=== PATIENT | female | born 1955 | race Caucasian/White ===

== ENCOUNTER 2020-09-22 21:43 | Inpatient (IN) | payer MEDICARE ==
[~2020-09-22] VITALS: Ht 149.9 cm; Wt 74.8 kg
[2020-09-22] MEDS ORDERED: ASPIRIN 325 MG TABLET ONE (22:59)
[2020-09-22] MEDS ORDERED: ACETAMINOPHEN 325 MG TAB ONE (22:59)
[2020-09-22] MEDS ORDERED: CEFTRIAXONE 1G VIAL ONE (23:26)
[2020-09-22] MEDS ORDERED: AZITHROMYCIN 500MG+NS 250ML 250 ML IV ONE (23:26)
[2020-09-22] MEDS ORDERED: 0.9%NACL 1000ML 2,000 ML IV ONE (23:27)
[2020-09-22 23:35] LABS: BASOPHILS % (AUTO) 0.2 % (0.0-5.0); EOSINOPHILS % (AUTO) 0.3 % (0.0-8.0); HEMATOCRIT 29.9 % (36-48); LYMPHOCYTES % (AUTO) 7.7 % (21.0-51.0); MEAN CORPUSCULAR HEMOGLOBIN 29.4 pg (27.0-33.0); MEAN CORPUSCULAR HGB CONC 35.5 g/dL (32.0-36.0); MEAN CORPUSCULAR VOLUME 82.8 fL (79-99); MONOCYTES % (AUTO) 3.5 % (3.0-13.0); NEUTROPHILS % (AUTO) 87.8 % (40.0-77.0); PLATELET COUNT (AUTO) 287 K/uL (130-400); RED BLOOD CELL COUNT(AUTO) 3.61 MIL/uL (4.00-5.50); WHITE BLOOD COUNT (AUTO) 14.4 K/uL (4.8-10.8)
[2020-09-22 23:38] LABS: APPEARANCE,URINE Cloudy (CLEAR); BILIRUBIN,URINE Negative (NEGATIVE); COLOR,URINE Yellow (YELLOW); GLUCOSE, URINE (UA) TRACE mg/dL (NEGATIVE); KETONES,URINE Negative (NEGATIVE); LEUKOCYTE ESTERASE ,URINE Negative (NEGATIVE); NITRATE,URINE Negative (NEGATIVE); OCCULT BLOOD,URINE Negative (NEGATIVE); PROTEIN,URINE Negative (NEGATIVE)
[2020-09-22] MEDS ORDERED: HYDROCODONE/ACETAMINOPHEN 5/325 MG TAB ONE (23:45)
[2020-09-22 23:55] LABS: INR 1.13 (0.85-1.15); PROTHROMBIN TIME 12.2 SEC (9.6-11.6)
[2020-09-22 23:57] LABS: PARTIAL THROMBOPLASTIN TIME 34.5 SEC (26.3-35.5)
[2020-09-23 00:01] LABS: B-TYPE NATRIURETIC PEPTIDE 46 pg/mL (0-100)
[2020-09-23 00:04] LABS: RBC,URINE 0-1 /HPF (0-1); WBC,URINE 0-1 /HPF (0-1)
[2020-09-23 00:06] LABS: BACTERIA,URINE None Seen /HPF (None Seen); SQUAMOUS EPITHELIAL CELL,UR 0-2 /HPF (0-2)
[2020-09-23 00:06] LABS: ALANINE AMINOTRANSFERASE 15 U/L (12-78); ALBUMIN 3.5 g/dL (3.5-5.0); ASPARTATE AMINOTRANSFERASE 14 U/L (10-37); BILIRUBIN,TOTAL 0.3 mg/dL (0.2-1.0); CARBON DIOXIDE 28 mmol/L (21-32); CHLORIDE 93 mmol/L (101-111); CREATINE KINASE, TOTAL 61 U/L (21-232); CREATININE 0.8 mg/dL (0.5-1.5); GLOMERULAR FILTR. RATE CALC 77 mL/min (>60); GLUCOSE,RANDOM 160 mg/dL (70-105); MYOGLOBIN 27 ng/mL (10-92); SODIUM SERUM 131 mmol/L (136-145); TOTAL PROTEIN, SERUM 6.5 g/dL (6.0-8.3); TROPONIN I < 0.04 ng/mL (0.00-0.06); UREA NITROGEN, BLOOD 14 mg/dL (7-18)
[2020-09-23 00:10] LABS: POTASSIUM 2.9 mmol/L (3.5-5.1)
[2020-09-23] MEDS ORDERED: IOHEXOL 350 MG/ML 100ML INFUS..BTL IV ONE (01:56)
[2020-09-23] MEDS ORDERED: 0.9%NACL 1000ML 1,000 ML IV ONE (03:09)
[2020-09-23] MEDS ORDERED: KCL 20 MEQ ERTAB PO ONE (03:09)
[2020-09-23] MEDS ORDERED: ACETAMINOPHEN 325 MG TAB ONE (08:00)
[2020-09-23] MEDS ORDERED: POTASSIUM CHLORIDE 20MEQ/100ML 100 ML IV PRN ×2 (10:30→17:15)
[2020-09-23] MEDS ORDERED: SOLU-MEDROL 40MG VIAL IVP SCH (10:45)
[2020-09-23 11:18] LABS: HEMOGLOBIN A1C 6.6 % (4.0-6.0)
[2020-09-23] MEDS ORDERED: SOLU-MEDROL 40MG VIAL ONE (12:29)
[2020-09-23] MEDS ORDERED: MAGNESIUM 2GM PREMIX 50ML 50 ML IV PRN (12:30)
[2020-09-23] MEDS ORDERED: ACETAMINOPHEN 325 MG TAB PO PRN (12:30)
[2020-09-23] MEDS ORDERED: ONDANSETRON 4MG TABLET PO PRN (13:15)
[2020-09-23] MEDS ORDERED: DICYCLOMINE HCL 20 MG TAB PO PRN (13:15)
[2020-09-23 13:48] LABS: CREATININE 0.6 mg/dL (0.5-1.5); POTASSIUM 3.1 mmol/L (3.5-5.1)
[2020-09-23] MEDS ORDERED: GABAPENTIN 300 MG CAPSULE PO SCH (14:00)
[2020-09-23 14:21] LABS: THYROID STIMULATING HORMONE 0.25 uIU/mL (0.36-3.74)
[2020-09-23] MEDS ORDERED: MAGNESIUM 2GM PREMIX 50ML 50 ML IV ONE (14:40)
[2020-09-23] MEDS ORDERED: METFORMIN HCL 500 MG TABLET PO SCH (17:00)
[2020-09-23] MEDS ORDERED: POTASSIUM CHLORIDE 10% ELIXIR 20 MEQ/15 ML UDCUP ONE (17:10)
[2020-09-23] MEDS ORDERED: POTASSIUM CHLORIDE 10% ELIXIR 20 MEQ/15 ML UDCUP PO PRN (17:15)
[2020-09-23] MEDS ORDERED: LIDOCAINE HCL-MPF 1% 2ML VIAL IJ PRN (17:15)
[2020-09-23] MEDS ORDERED: AZITHROMYCIN 500MG+NS 250ML 250 ML IV SCH (19:00)
[2020-09-23 20:00] VITALS: BP 137/61
[2020-09-23] MEDS: GABAPENTIN 300 MG CAPSULE PO SCH ×2 (21:00→21:33)
[2020-09-23] MEDS: INSULIN HUMULIN R 100 UNIT/ML 3ML SQ SCH (21:00)
[2020-09-23] MEDS: HYDROCHLOROTHIAZIDE 25 MG TABLET PO SCH (21:32)
[2020-09-23] MEDS: CEFTRIAXONE 1G VIAL IVP SCH (21:32)
[2020-09-23] MEDS: DULOXETINE HCL 30 MG CAP PO SCH (21:33)
[2020-09-23] MEDS: SOLU-MEDROL 40MG VIAL IVP SCH (21:33)
[2020-09-23] MEDS: TRAZODONE HCL 50 MG TAB PO SCH (21:34)
[2020-09-23] MEDS: FAMOTIDINE 20MG VIAL IV SCH (21:34)
[2020-09-23] MEDS: CARVEDILOL 6.25 MG TABLET PO SCH (22:12)
[2020-09-24 04:00] VITALS: BP 143/66
[2020-09-24 04:30] LABS: BASOPHILS % (AUTO) 0.2 % (0.0-5.0); LYMPHOCYTES % (AUTO) 8.5 % (21.0-51.0); MEAN CORPUSCULAR HEMOGLOBIN 28.7 pg (27.0-33.0); MEAN CORPUSCULAR HGB CONC 34.5 g/dL (32.0-36.0); MEAN CORPUSCULAR VOLUME 83.1 fL (79-99); MONOCYTES % (AUTO) 1.5 % (3.0-13.0); PLATELET COUNT (AUTO) 224 K/uL (130-400); RED BLOOD CELL COUNT(AUTO) 3.49 MIL/uL (4.00-5.50); WHITE BLOOD COUNT (AUTO) 9.9 K/uL (4.8-10.8)
[2020-09-24 05:06] LABS: ALBUMIN 3.1 g/dL (3.5-5.0); BILIRUBIN,TOTAL 0.2 mg/dL (0.2-1.0); CREATININE 0.7 mg/dL (0.5-1.5); POTASSIUM 3.5 mmol/L (3.5-5.1); TOTAL PROTEIN, SERUM 7.2 g/dL (6.0-8.3)
[2020-09-24 05:28] LABS: CRP QUANTITATIVE 236.5 mg/L (0.00-9.0)
[2020-09-24] MEDS: LEVOTHYROXINE 100 MCG TABLET PO SCH (06:04)
[2020-09-24] MEDS: INSULIN HUMULIN R 100 UNIT/ML 3ML SQ SCH ×4 (06:34→21:14)
[2020-09-24 07:37] VITALS: BP 117/61
[2020-09-24] MEDS: DULOXETINE HCL 30 MG CAP PO SCH ×2 (08:46→20:12)
[2020-09-24] MEDS: CARVEDILOL 6.25 MG TABLET PO SCH ×2 (08:47→20:13)
[2020-09-24] MEDS: SOLU-MEDROL 40MG VIAL IVP SCH (08:47)
[2020-09-24] MEDS: HYDROCHLOROTHIAZIDE 25 MG TABLET PO SCH ×2 (08:48→20:13)
[2020-09-24] MEDS: FAMOTIDINE 20MG VIAL IV SCH ×2 (08:48→20:12)
[2020-09-24] MEDS: GABAPENTIN 300 MG CAPSULE PO SCH ×3 (08:48→20:13)
[2020-09-24] MEDS: ENOXAPARIN SODIUM 40 MG/0.4 ML SYRINGE SQ SCH (08:49)
[2020-09-24] MEDS: OLMESARTAN 20 MG PO SCH (08:56)
[2020-09-24] MEDS ORDERED: ROSUVASTATIN 5MG PO SCH (09:00)
[2020-09-24 12:00] VITALS: BP 138/71
[2020-09-24 13:23] LABS: URIC ACID 5.4 mg/dL (2.6-7.2)
[2020-09-24] MEDS ORDERED: VANCOMYCIN PROTOCOL PER PHARMACY IV SCH (15:15)
[2020-09-24] MEDS ORDERED: COMPOUND IV REFRIGERATED 1 EACH IVSOLN MISC PRN (15:30)
[2020-09-24] MEDS ORDERED: VANCOMYCIN 1G 1.5 GM in 0.9% NACL 250ML 250 ML IV ONE (16:00)
[2020-09-24 16:10] VITALS: BP 139/69
[2020-09-24] MEDS ORDERED: 0.9% NACL 500ML IV.SOLN 500 ML IV ONE (16:42)
[2020-09-24] MEDS: PHARMACY COMMUNICATION MISC SCH ×2 (19:28→19:30)
[2020-09-24] MEDS: CEFTRIAXONE 1G VIAL IVP SCH (20:11)
[2020-09-24 20:12] VITALS: BP 139/69
[2020-09-24] MEDS: TRAZODONE HCL 50 MG TAB PO SCH (20:13)
[2020-09-25] VITALS (7 sets, daily range): BP systolic 119–146; BP diastolic 58–85
[2020-09-25] MEDS: PHARMACY COMMUNICATION MISC SCH (01:26)
[2020-09-25 05:15] LABS: BASOPHILS % (AUTO) 0.2 % (0.0-5.0); HEMATOCRIT 27.3 % (36-48); LYMPHOCYTES % (AUTO) 11.2 % (21.0-51.0); MEAN CORPUSCULAR HEMOGLOBIN 28.3 pg (27.0-33.0); MEAN CORPUSCULAR HGB CONC 33.3 g/dL (32.0-36.0); MEAN CORPUSCULAR VOLUME 84.8 fL (79-99); MONOCYTES % (AUTO) 6.4 % (3.0-13.0); NEUTROPHILS % (AUTO) 81.3 % (40.0-77.0); PLATELET COUNT (AUTO) 269 K/uL (130-400); RED BLOOD CELL COUNT(AUTO) 3.22 MIL/uL (4.00-5.50); WHITE BLOOD COUNT (AUTO) 11.8 K/uL (4.8-10.8)
[2020-09-25 05:33] LABS: ALBUMIN 2.8 g/dL (3.5-5.0); BILIRUBIN,TOTAL 0.1 mg/dL (0.2-1.0); CREATININE 0.9 mg/dL (0.5-1.5); POTASSIUM 3.3 mmol/L (3.5-5.1); TOTAL PROTEIN, SERUM 6.5 g/dL (6.0-8.3)
[2020-09-25] MEDS: LEVOTHYROXINE 100 MCG TABLET PO SCH (05:57)
[2020-09-25] MEDS: KCL 20 MEQ ERTAB PO PRN ×3 (05:58→10:48)
[2020-09-25] MEDS ORDERED: VANCOMYCIN 750MG + NS 250 ML IV SCH ×4 (06:00→09:00)
[2020-09-25] MEDS: INSULIN HUMULIN R 100 UNIT/ML 3ML SQ SCH ×4 (06:09→19:38)
[2020-09-25] MEDS: OLMESARTAN 20 MG PO SCH (09:00)
[2020-09-25] MEDS ORDERED: VANCOMYCIN 1G 1.25 GM in 0.9% NACL 250ML 250 ML IV SCH (09:15)
[2020-09-25] MEDS: DULOXETINE HCL 30 MG CAP PO SCH ×2 (10:42→19:36)
[2020-09-25] MEDS: ENOXAPARIN SODIUM 40 MG/0.4 ML SYRINGE SQ SCH (10:42)
[2020-09-25] MEDS: GABAPENTIN 300 MG CAPSULE PO SCH ×3 (10:43→19:36)
[2020-09-25] MEDS: FAMOTIDINE 20MG VIAL IV SCH ×2 (10:44→19:35)
[2020-09-25] MEDS: CARVEDILOL 6.25 MG TABLET PO SCH ×2 (10:44→19:38)
[2020-09-25] MEDS: HYDROCHLOROTHIAZIDE 25 MG TABLET PO SCH ×2 (10:44→19:37)
[2020-09-25] MEDS ORDERED: TRAZODONE HCL 50 MG TAB PO SCH (15:30)
[2020-09-25] MEDS ORDERED: METF-444 PO (15:45)
[2020-09-25] MEDS ORDERED: HYDR25TA PO (15:45)
[2020-09-25] MEDS ORDERED: DULO30CA52 PO (15:45)
[2020-09-25] MEDS ORDERED: ONDA-105 PO (15:45)
[2020-09-25] MEDS ORDERED: ROSU5TAB12 PO (15:45)
[2020-09-25] MEDS ORDERED: DICY20TA3 PO (15:45)
[2020-09-25] MEDS ORDERED: OLME20TA22 PO (15:45)
[2020-09-25] MEDS ORDERED: GABA600T10 PO (15:45)
[2020-09-25] MEDS ORDERED: LEVO-172 PO (15:45)
[2020-09-25] MEDS ORDERED: TRAZ-185 PO (15:45)
[2020-09-25] MEDS ORDERED: CARV6.25 PO (15:45)
[2020-09-25] MEDS ORDERED: DULOXETINE HCL 30 MG CAP PO SCH (16:30)
[2020-09-25] MEDS: CEFTRIAXONE 1G VIAL IVP SCH (19:35)
[2020-09-25] MEDS: TRAZODONE HCL 50 MG TAB PO SCH (19:36)
[2020-09-25] MEDS: VANCOMYCIN 750MG + NS 250 ML IV SCH ×2 (19:45)
[2020-09-25] MEDS ORDERED: NON-FORMULARY MEDICATION 1 EACH (Gabapentin 600 MG) PO SCH (21:00)
[2020-09-25] MEDS ORDERED: HYDROCHLOROTHIAZIDE 25 MG TABLET PO SCH (21:00)
[2020-09-25] MEDS ORDERED: NON-FORMULARY MEDICATION 1 EACH (Rosuvastatin Calcium 5 MG) PO SCH (21:00)
[2020-09-25] MEDS ORDERED: CARVEDILOL 6.25 MG TABLET PO SCH (21:00)
[2020-09-26] MEDS ORDERED: ACETAMINOPHEN 325 MG TAB PO PRN (04:30)
[2020-09-26 04:59] VITALS: BP 138/78
[2020-09-26 05:11] LABS: BASOPHILS % (AUTO) 0.7 % (0.0-5.0); EOSINOPHILS % (AUTO) 1.8 % (0.0-8.0); HEMATOCRIT 32.4 % (36-48); LYMPHOCYTES % (AUTO) 30.4 % (21.0-51.0); MEAN CORPUSCULAR HGB CONC 32.4 g/dL (32.0-36.0); MEAN CORPUSCULAR VOLUME 86.4 fL (79-99); MONOCYTES % (AUTO) 7.7 % (3.0-13.0); NEUTROPHILS % (AUTO) 58.1 % (40.0-77.0); PLATELET COUNT (AUTO) 297 K/uL (130-400); RED BLOOD CELL COUNT(AUTO) 3.75 MIL/uL (4.00-5.50); RED CELL DISTRIBUTION WIDTH 12.3 % (11.0-15.5); WHITE BLOOD COUNT (AUTO) 10.4 K/uL (4.8-10.8)
[2020-09-26 05:31] LABS: ALBUMIN 3.3 g/dL (3.5-5.0); BILIRUBIN,TOTAL 0.2 mg/dL (0.2-1.0); CREATININE 0.8 mg/dL (0.5-1.5); POTASSIUM 3.9 mmol/L (3.5-5.1); TOTAL PROTEIN, SERUM 7.4 g/dL (6.0-8.3)
[2020-09-26] MEDS: LEVOTHYROXINE 100 MCG TABLET PO SCH (05:57)
[2020-09-26] MEDS: INSULIN HUMULIN R 100 UNIT/ML 3ML SQ SCH ×4 (05:59→20:56)
[2020-09-26] MEDS: DULOXETINE HCL 30 MG CAP PO SCH ×2 (08:58→19:50)
[2020-09-26] MEDS: HYDROCHLOROTHIAZIDE 25 MG TABLET PO SCH ×2 (08:58→19:49)
[2020-09-26] MEDS: GABAPENTIN 300 MG CAPSULE PO SCH ×3 (08:58→19:51)
[2020-09-26] MEDS: OLMESARTAN 20 MG PO SCH (09:00)
[2020-09-26] MEDS: FAMOTIDINE 20MG VIAL IV SCH ×2 (09:00→19:50)
[2020-09-26] MEDS: CARVEDILOL 6.25 MG TABLET PO SCH ×2 (09:00→19:50)
[2020-09-26] MEDS ORDERED: LEVOTHYROXINE 100 MCG TABLET PO SCH (09:00)
[2020-09-26] MEDS: VANCOMYCIN 750MG + NS 250 ML IV SCH ×2 (09:00)
[2020-09-26] MEDS ORDERED: NON-FORMULARY MEDICATION 1 EACH (Olmesartan Medoxomil 20 MG) PO SCH (09:00)
[2020-09-26] MEDS: ENOXAPARIN SODIUM 40 MG/0.4 ML SYRINGE SQ SCH (09:01)
[2020-09-26 10:18] VITALS: BP 128/69
[2020-09-26 12:47] VITALS: BP 142/76
[2020-09-26 17:36] VITALS: BP 132/73
[2020-09-26] MEDS: TRAZODONE HCL 50 MG TAB PO SCH (19:50)
[2020-09-26 20:00] VITALS: BP 126/57
[2020-09-27] VITALS: BP 109/61
[2020-09-27 04:00] VITALS: BP 146/68
[2020-09-27] MEDS: LEVOTHYROXINE 100 MCG TABLET PO SCH (05:41)
[2020-09-27 05:51] LABS: BASOPHILS % (AUTO) 0.8 % (0.0-5.0); EOSINOPHILS % (AUTO) 2.9 % (0.0-8.0); LYMPHOCYTES % (AUTO) 38.7 % (21.0-51.0); MEAN CORPUSCULAR HEMOGLOBIN 29.1 pg (27.0-33.0); MEAN CORPUSCULAR HGB CONC 33.9 g/dL (32.0-36.0); MEAN CORPUSCULAR VOLUME 85.6 fL (79-99); NEUTROPHILS % (AUTO) 45.9 % (40.0-77.0); PLATELET COUNT (AUTO) 254 K/uL (130-400); RED BLOOD CELL COUNT(AUTO) 3.27 MIL/uL (4.00-5.50); RED CELL DISTRIBUTION WIDTH 12.1 % (11.0-15.5); WHITE BLOOD COUNT (AUTO) 8.5 K/uL (4.8-10.8)
[2020-09-27] MEDS: INSULIN HUMULIN R 100 UNIT/ML 3ML SQ SCH (05:52)
[2020-09-27 06:05] LABS: CREATININE 0.7 mg/dL (0.5-1.5); POTASSIUM 3.7 mmol/L (3.5-5.1)
[2020-09-27] MEDS: OLMESARTAN 20 MG PO SCH (07:37)
[2020-09-27] MEDS ORDERED: VANCOMYCIN PROTOCOL PER PHARMACY IV SCH (07:45)
[2020-09-27 08:15] VITALS: BP 143/57
[2020-09-27] MEDS: CARVEDILOL 6.25 MG TABLET PO SCH (09:35)
[2020-09-27] MEDS: FAMOTIDINE 20MG VIAL IV SCH (09:36)
[2020-09-27] MEDS: GABAPENTIN 300 MG CAPSULE PO SCH (09:36)
[2020-09-27] MEDS: DULOXETINE HCL 30 MG CAP PO SCH (09:36)
[2020-09-27] MEDS: HYDROCHLOROTHIAZIDE 25 MG TABLET PO SCH (09:37)
[2020-09-27] MEDS: ENOXAPARIN SODIUM 40 MG/0.4 ML SYRINGE SQ SCH (09:38)
[2020-09-27 13:00] VITALS: BP 89/56
[2020-09-27] MEDS ORDERED: VANCOMYCIN 1G 1.5 GM in 0.9% NACL 250ML 250 ML IV ONE (13:00)
[2020-09-28] MEDS ORDERED: VANCOMYCIN 1GM+NS 250ML IV SCH (06:00)
== END 2020-09-27 13:30 | disposition home or self-care (01) | DRG 866 ==
LOC: EDH 21:43 → EDHIP 09-23 12:17 → 2AH 09-23 17:57 → 3AH 09-24 18:32
PROVIDERS: ADMIT Internal Medicine; ATTEND Internal Medicine
DX: B34.9 Viral infection, unspecified (principal); E11.42 Type 2 diabetes mellitus with diabetic polyneuropathy; K21.9 Gastro-esophageal reflux disease without esophagitis; D64.9 Anemia, unspecified; E66.9 Obesity, unspecified; E78.5 Hyperlipidemia, unspecified; E87.6 Hypokalemia; G47.00 Insomnia, unspecified; I11.9 Hypertensive heart disease without heart failure; J44.9 Chronic obstructive pulmonary disease, unspecified; K59.00 Constipation, unspecified; F41.9 Anxiety disorder, unspecified; Z96.652 Presence of left artificial knee joint; Z20.822 Contact with and (suspected) exposure to COVID-19; R53.81 Other malaise; M06.9 Rheumatoid arthritis, unspecified; E03.9 Hypothyroidism, unspecified; Z68.33 Body mass index [BMI] 33.0-33.9, adult; Z88.5 Allergy status to narcotic agent; Z88.2 Allergy status to sulfonamides; Z90.49 Acquired absence of other specified parts of digestive tract; Z85.850 Personal history of malignant neoplasm of thyroid; Z83.3 Family history of diabetes mellitus
CPT/HCPCS: 36415; 71045; 74177; 80048; 80053; 80202; 81001; 82550; 82607; 82948; 83036; 83605; 83735; 83874; 83880; 84145; 84439; 84443; 84484; 84550; 85025; 85378; 85610; 85651; 85730; 86038; 86140; 86200; 86215; 86431; 86592; 86900; 86901; 87040; 87088; 87426; 93005; 93306; 93356; G0378; J0456; J0696; J1650; J1815; J2920; J3370; J3475; J3490; J7030; J7040; J7050; Q9967; U0003